=== PATIENT | female | born 1955 | race Caucasian/White ===

== ENCOUNTER 2025-03-14 12:09 | Emergency (ER) | payer MEDICARE, OTHER ==
[~2025-03-14] VITALS: Ht 160 cm; Wt 77.3 kg
[2025-03-14 12:13] VITALS: TEMP 97.9
[2025-03-14] MEDS ORDERED: NAPR-1197 PO (12:16)
[2025-03-14] MEDS: IBUPROFEN 600 MG TABLET PO ONE (12:47)
[2025-03-14] MEDS: ACETAMINOPHEN/CODEINE 300-30 MG TABLET PO ONE (12:47)
[2025-03-14 13:23] VITALS: BP 149/82; PULSE 69; RESP 16; O2SAT 99
[2025-03-14] MEDS ORDERED: IBUP-1554 PO (13:54)
[2025-03-14] MEDS ORDERED: METH-659 PO (13:54)
[2025-03-14] MEDS ORDERED: ACET-2080 PO (13:54)
== END 2025-03-14 14:59 | disposition home or self-care (01) ==
LOC: EMS 12:12
DX: M79.662 Pain in left lower leg (principal); M19.90 Unspecified osteoarthritis, unspecified site; Z98.890 Other specified postprocedural states; Z79.899 Other long term (current) drug therapy
CPT/HCPCS: 99284; Z7502; Z7610